=== PATIENT | female | born 1990 ===

== ENCOUNTER 2017-03-29 08:40 | Inpatient (IN) | payer OTHER ==
[2017-03-26 09:28] VITALS: BMI 23.0
[~2017-03-29 08:40] MED LIST: Bupivacaine-Epi 0.25%-1:200,000 PF Inj ONE
[2017-03-29 09:35] LABS: HEMATOCRIT 40.4 % (34.0-47.0); MEAN CELL VOLUME 93.8 fL (81.0-99.0); MEAN CORPUSCULAR HEMOGLOBIN 32.6 pg (27.0-31.0); MEAN CORPUSCULAR HGB CONC 34.8 g/dL (33.0-37.0); MEAN PLATELET VOLUME 8.8 fL (7.2-11.7); RED CELL DISTRIBUTION WIDTH 12.4 % (11.5-14.5); WHITE BLOOD COUNT 6.2 K/uL (4.8-10.8)
[2017-03-29] MEDS ORDERED: Clindamycin 600mg/50ml NS 600 MG/50 ML BAG IVPB ONE (12:25)
[2017-03-29] MEDS ORDERED: Bupivacaine-Epi 0.25%-1:200,000 PF Inj ONE (12:26)
[2017-03-29] MEDS ORDERED: Midazolam 2 MG/2 ML VIAL ONE (12:39)
[2017-03-29] MEDS ORDERED: Propofol 10 mg/ml Inj (20 ML) ONE (12:40)
[2017-03-29] MEDS ORDERED: Lactated Ringer's 1,000 ML IV ONE (12:45)
[2017-03-29] MEDS ORDERED: Methylene Blue 10 mg/mL(10ml) IV ONE (12:49)
[2017-03-29] MEDS ORDERED: Rocuronium 10 mg/ml (5 ml) ONE (14:09)
--- NOTE | 2017-03-29 14:38 | PCM.SURG1 ---
Surgeon's Initial Post Op Note - Surgeon's Notes Surgeon: parker lyn md Mechanical Technical Service Specialist: percy bryant Type of Anesthesia: General Endo, Local Pre-Operative Diagnosis: chronic pelvic pain Operative Findings: endometriosis throughout the pelvic cavity and on sigmoid colon, dark and light endometriosis lessions up to the pelvic brim. Extensive adhessions involving bowel and ometum withing pos duldesac. review of bladder and ureters anatomy as per cystosocpy at the end of the procedure showed hunner lessions c/w IC. umbilical hernia small repair in a primary fashion. chromotubatin showing bilateral tubes patent Post-Operative Diagnosis: Chronic pelvic pain. severe endometriosis. pelvic adhesive disease. bowel endometriosis. interstitial cystitis. umbilical hernia Operation Performed: Robotic excision of endometriosis. Enterolysis lysis of adhesions. Chromotubation. Diognostic cystoscopy Specimen/Specimens Removed: endometriosis Estimated Blood Loss: EBL {In ML}: 5 Blood Products Given: N/A Drains Used: No Drains Post-Op Condition: Good Date of Surgery/Procedure: 03/29/17 Time of Surgery/Procedure: 14:47
[2017-03-29] MEDS ORDERED: Neostigmine Methylsulfate 3mg/3ml Syringe IV ONE (14:42)
[2017-03-29] MEDS ORDERED: Morphine 4 MG/ML VIAL IVP PRN (14:50)
[2017-03-29] MEDS ORDERED: Sodium Chloride 0.9% 1,000 ML IV SCH (15:00)
[2017-03-29] MEDS: HYDROmorphone 0.5 mg/0.5 ml ISec IVP PRN ×3 (15:08→15:48)
[2017-03-29] MEDS: Oxycodone/Acetaminophen 5/325 mg Tab PO PRN (18:51)
[2017-03-29 20:14] VITALS: O2SAT 98
[2017-03-29] MEDS: Clindamycin 600mg/50ml NS 600 MG/50 ML BAG IVPB SCH (22:22)
[2017-03-30] MEDS: Clindamycin 600mg/50ml NS 600 MG/50 ML BAG IVPB SCH (05:54)
[2017-03-30] MEDS: Oxycodone/Acetaminophen 5/325 mg Tab PO PRN ×2 (05:57→11:19)
[2017-03-30 07:20] LABS: HEMATOCRIT 35.3 % (34.0-47.0); MEAN CELL VOLUME 93.8 fL (81.0-99.0); MEAN CORPUSCULAR HGB CONC 35.2 g/dL (33.0-37.0); MEAN PLATELET VOLUME 8.8 fL (7.2-11.7); RED CELL DISTRIBUTION WIDTH 12.5 % (11.5-14.5)
[2017-03-30 07:31] LABS: CHLORIDE 101 mmol/L (98-107); POTASSIUM 3.7 mmol/L (3.6-5.2); SODIUM 134 mmol/L (132-148)
[2017-03-30 07:34] LABS: CARBON DIOXIDE 23 mmol/L (22-30); GFR AFRICAN-AMERICAN > 60
[2017-03-30 07:35] LABS: BLOOD UREA NITROGEN 6 mg/dL (7-17); CALCIUM 8.7 mg/dl (8.6-10.4); GLUCOSE,RANDOM 82 mg/dL (65-105)
[2017-03-30 08:30] VITALS: BP 103/60; PULSE 73; RESP 18; TEMP 97
--- NOTE | 2017-03-30 09:54 | CP.PCM.PN ---
Subjective - Date & Time of Evaluation Date of Evaluation: 03/30/17 Time of Evaluation: 09:50 - Subjective Subjective: Surgery: Dr. Joe Pt seen and examined. Resting comfortably in chair. Mild pain overnight. Controlled w. meds. No F/C. No N/V. Tolerating diet. Ambulating w. out issue. Objective - Vital Signs/Intake and Output Vital Signs (last 24 hours): Temp Pulse Resp BP Pulse Ox 97 F L 73 18 103/60 98 03/30/17 08:00 03/30/17 08:00 03/30/17 08:00 03/30/17 08:00 03/30/17 08:00 Intake and Output: 03/30/17 03/30/17 06:59 18:59 Intake Total 1590 Output Total 880 Balance 710 - Medications Medications: Current Medications Clindamycin Phosphate (Cleocin In Normal Saline Addvantage) 600 mg in 50 mls @ 102 mls/hr IVPB Q8 TWILA Last Admin: 03/30/17 05:54 Dose: 102 mls/hr Sodium Chloride (Sodium Chloride 0.9%) 1,000 mls @ 95 mls/hr IV .[id number] [facility] Last Admin: 03/29/17 16:30 Dose: 0 mls Morphine Sulfate (Morphine) 4 mg IVP Q4H PRN PRN Reason: Pain, severe (8-10) Last Admin: 03/29/17 21:44 Dose: 4 mg Ondansetron HCl (Zofran Inj) 4 mg IVP ONCE PRN PRN Reason: Nausea/Vomiting Oxycodone/Acetaminophen (Percocet 5/325 Mg Tab) 1 tab PO Q4 PRN PRN Reason: Pain, moderate (4-7) Stop: 04/01/17 14:51 Last Admin: 03/30/17 05:57 Dose: 1 tab - Labs Labs: 03/30/17 07:10 03/30/17 07:10 - Constitutional Appears: Non-toxic, No Acute Distress - Head Exam Head Exam: ATRAUMATIC, NORMOCEPHALIC - Eye Exam Eye Exam: EOMI. absent: Scleral icterus - ENT Exam ENT Exam: Mucous Membranes Moist, Normal External Ear Exam - Neck Exam Neck Exam: Full ROM - Respiratory Exam Respiratory Exam: NORMAL BREATHING PATTERN. absent: Accessory Muscle Use, Respiratory Distress - GI/Abdominal Exam GI & Abdominal Exam: Soft, Tenderness (andre-incisional ). absent: Distended, Firm, Guarding, Rigid, Rebound Additional comments: incisions C/D/I - Neurological Exam Neurological Exam: Alert, Awake, Oriented x3 Assessment and Plan - Assessment and Plan (Free Text) Assessment: 26F s/p robotic excision of endometriosis, POD#1 -pt clear for D/C from surgical standpoint -Take pain meds as instructed -F/U w. Dr. Joe in 2 weeks -return to ED if issues arise -d/w attending Viridianaitis PGY3
[2017-03-30] MEDS ORDERED: Influenza Vaccine 60 mcg/0.5 mL SYR (4YR UP) IM ONE (11:37)
--- NOTE | 2017-04-04 19:11 | PCM.OP ---
Operative Report - Operative Report Date of Surgery/Procedure: 03/29/17 Time of Surgery/Procedure: 14:45 Surgeon: Eder Joe md Crop Duster Helper: Afshan DURAN Anesthesia/Sedation: General with ET tube Pre-Operative Diagnosis: Chronic pelvic pain Post-Operative Diagnosis: Chronic pelvic pain. Severe endometriosis. Extensive pelvic adhesive disease. Bowel endometriosis. Interstitial cystitis. Umbilical hernia Indication for Surgery: Worsening chronic pelvic pain Operative Findings: Endometriosis throughout the pelvic cavity and on the sigmoid colon, dark and light endometriosis lesions presents up to the the pelvic brim. Extensive adhesions involving bowel and omentum throughout the posterior cul-de-sac. Bladder and ureters appeared normal as per cystoscopy at the end of the case. Chromotubation showing bilateral tubes patent. Umbilical hernia noted with fatty content no bowel involvement noted. Procedure/Operation Description: Robotic excision of endometriosis. Enterolysis and lysis of adhesions. Chromotubation. Umbilical hernia repair. Diagnostic cystoscopy. . Detailed operative report. This is a 26 years old female with chronic pelvic pain, dyspareunia and abnormal uterine bleeding as well as strong possibility of endometriosis. This patient described this pain as debilitating and limiting her daily activity and adversely affecting her quality of life. The patient has failed conservative therapy for a long periods of time including hormonal therapy as well as nonsteroidal anti-inflammatories. Following a complete work up at the office which included a U/S, vaginal cultures, hematology and chemistry, decision was made to proceed with a robotic assisted excision of endometriosis possible lysis of adhesions and chromotubation. After proper consent was obtained from the patient, she was taken to the operating room, placed in lithotomy position, her legs placed in adjustable stirrups. Careful attention was placed to avoid hyperflexion or hyper-rotation of the lower extremities. Exam under anesthesia revealed a non-mobile uterus, with adnexal fullness bilaterally, and nodularity appreciated the posterior fornix. She was prepped and draped for a robotic excision of endometriosis. Stratton catheter was placed in sterile condition. Weighted speculum was placed in the vagina, the anterior lip of the cervix was grasped with a tenaculum, and the cervix was dilated to allow a V-Care uterine manipulator insertion into the endometrial cavity. While tenting the abdominal wall, a veres needle was inserted through the umbilicus and a pneumoperitoneum was obtained. A 1cm incision was made within the umbilical fold and a trocar and sleeve were introduced. The patient was placed in Trendelenburg position. A robotic camera was introduced and an initial survey of the pelvic cavity revealed extensive peritoneal adhesions, bowel loops adherent to other viscera as well as uterus and anterior abdominal wall. Multiple endometriosis lesions noted on the posterior cul-de-sac wall, deep tissue endometriosis was diagnosed. Surface of the posterior cul-de-sac was distorted evidence of endometriosis with white and brown spots lesions or consistent with endometriosis. Multiple lesions of endometriosis were noted on the sigmoid colon. Three robotic ports were used for the procedure and were inserted through 5 mm incisions. The first port was inserted on the right side approximately 5 cm cephalad to the superior iliac crest; the second port was placed in a mirror image location on the contralateral side the third port was placed on the patient right side approx. 5 cm superior to the iliac crest. An environmental emergencies assistant port was placed through an 8 mm incision in the suprapubic region, 2 cm left lateral midline. Lateral side docking was achieved with the robot with no difficulty. A monopolar shear was inserted through the port on the right side and a PK was inserted through the port on the left side. Both ureters were visualized with peristalsis prior to the excision and ablation of endometriosis. Meticulous lysis of peritoneal adhesions and ablation of endometriosis was accomplished with the leena and the PK. A long and meticulous process of enterolysis was necessary to access multiple endometriosis lesion along the posterior cul-de-sac. Following meticulous enterolysis, and prior to the excision of the large endometriomas, it was necessary to explore both ureters and their courses in order to avoid structural compromise to ureters. In summary, enterolysis as well as, ovariolysis as well as salpingo-lysis was completed to restore somewhat of normal anatomy. Excision of superficial endometriosis lesion was completed with monopolar leena careful attention was paid to avoid close proximity to ureters and great vessels. Excision of endometriosis along the sigmoid colon was achieved utilizing monopolar leena in the cold mode. Excellent hemostasis noted no bowel compromise as encountered. Chromotubation was completed at the end stages of the case. Methylene blue dilute solution was infused through the cervix and direct visualization of spillage through the fimbria was noted bilaterally. Both fallopian tubes appeared patent. The abdomen was throughout irrigated and cleared of clots and debris. The ureters were once again visualized with peristalsis and excellent hemostasis noted throughout. Flow- seal and inter-seed to prevent further adhesions placed over the excision / ablation beds. All instruments were removed under direct visualization; the robotic arms were undocked. Pneumoperitoneum was reduced. Attention was then turned to the umbilical hernia noted at the beginning of the case. 2 cm umbilical hernia was noted under direct visualization, the umbilical sac was entered and meticulous fashion and fat content was evacuated. The umbilical defect was closed in primary fashion utilizing 0 Vicryl suture in interrupted fashion with closure of the hernia without any undue tension. Once hemostasis noted. The camera port was closed at a fascial layer with a 2-0 vicryl. All skin incisions were closed with a 4-0 monocryl in a subcuticular fashion. The Vcare was removed and Stratton remained to be removed the next morning. Prior to incision, patient received prophylactic antibiotics (Ancef), prior to closure, sponge lap and needle count were correct times two. Patient was taken to recovery room under stable condition. Estimated Blood Loss: 5cc Blood Replaced: None Sponge/Instrument Count: Sponge lap and needle count were correct 2 Drains: None Complications: None Specimen: Endometriosis Discharge & Condition: Patient discharged home in stable condition
== END 2017-03-30 12:50 | disposition home or self-care (01) | DRG 747 ==
LOC: C.SDS 08:40 → C.4M 14:51
PROVIDERS: ADMIT Obstetrics & Gynecology; ATTEND Obstetrics & Gynecology
PROC: 0DNW4ZZ Release Peritoneum, Percutaneous Endoscopic Approach (ICD-10-PCS; 2017-03-29)
PROC: 0DNU4ZZ Release Omentum, Percutaneous Endoscopic Approach (ICD-10-PCS; 2017-03-29)
PROC: 0WQF4ZZ Repair Abdominal Wall, Percutaneous Endoscopic Approach (ICD-10-PCS; 2017-03-29)
PROC: 8E0W4CZ Robotic Assisted Procedure of Trunk Region, Percutaneous Endoscopic Approach (ICD-10-PCS; 2017-03-29)
PROC: 0TJB8ZZ Inspection of Bladder, Via Natural or Artificial Opening Endoscopic (ICD-10-PCS; 2017-03-29)
PROC: 0UBF4ZZ Excision of Cul-de-sac, Percutaneous Endoscopic Approach (ICD-10-PCS; principal; 2017-03-29 10:45)
PROC: 0DNG4ZZ Release Left Large Intestine, Percutaneous Endoscopic Approach (ICD-10-PCS; 2017-03-29 10:45)
DX: N80.3 Endometriosis of pelvic peritoneum (principal); N80.5 Endometriosis of intestine; N73.6 Female pelvic peritoneal adhesions (postinfective); K66.0 Peritoneal adhesions (postprocedural) (postinfection); K42.9 Umbilical hernia without obstruction or gangrene; N30.10 Interstitial cystitis (chronic) without hematuria; N93.9 Abnormal uterine and vaginal bleeding, unspecified; N94.10 Unspecified dyspareunia; G89.29 Other chronic pain